=== PATIENT | male | born 1945 | race Caucasian/White ===

== ENCOUNTER 2018-03-13 05:23 | Inpatient (IN) ==
[2018-03-13] MEDS ORDERED: 0.9 % SODIUM CHLORIDE 1,000 ML IV ONE ×2 (05:29→06:23)
[2018-03-13] MEDS ORDERED: ACETAMINOPHEN 325 MG TABLET PO ONE (05:38)
[2018-03-13 06:39] LABS: Basophils # (Auto) 0 K/mcL (0.0-0.3); Basophils % (Auto) 0 % (0.0-2.0); Eosinophils # (Auto) 0 K/mcL (0.0-0.7); Eosinophils % (Auto) 0.1 % (0.0-7.0); Granulocytes % (Auto) 95.6 % (38.0-78.0); Lymphocytes # (Auto) 0.3 K/mcL (1.5-4.8); Lymphocytes % (Auto) 3.9 % (15.5-49.0); Mean Corpuscular HGB Conc 33.5 g/dL (31.0-36.0); Mean Corpuscular Hemoglobin 31.2 pg (26.0-34.0); Monocytes # (Auto) 0 K/mcL (0.1-0.9); Monocytes % (Auto) 0.4 % (1.0-12.0); Platelet Count 212 K/mcL (140-440); RBC 4.78 M/mcL (4.50-5.90); Red Cell Distribution Width 12.7 % (11.5-14.5)
[2018-03-13] MEDS ORDERED: PHENobarb/HYOSCY/ATROPINE/SCOP 1 DOSE BOTTLE PO ONE (06:41)
[2018-03-13 06:58] LABS: ALT/SGPT 20 U/l (0-40); Albumin 4.1 gm/dL (3.2-5.2); Albumin/Globulin Ratio 1.7 (1.0-2.3); Alkaline Phosphatase 101 U/L (39-117); Blood Urea Nitrogen 16 mg/dl (8-23); C-Reactive Protein 0.4 mg/dl (0.0-0.8)
[2018-03-13 07:11] LABS: Appearance,Urine CLOUDY; Bacteria,Urine 0 /hpf (0); Bilirubin,Urine NEG (NEG); Color,Urine RED; Glucose,Urine (UA) NEGATIVE (NEG); Leukocyte Esterase,Urine NEG /uL (NEG); Mucus,Urine MANY /hpf (0); Protein,Urine 100 mg/dL (NEG); Specific Gravity,Urine 1.013 (1.000-1.035); Urine Blood >=1.0 mg/dL (<0.03); Urine RBC > 182 /hpf (0-1); Urine Squamous Epithelial Cell 0 /hpf (0-4); Urine WBC > 182 /hpf (0-4); Urobilinogen,Urine NEG (NEG)
[2018-03-13] MEDS ORDERED: LACTATED RINGERS 500 ML IV ONE (08:01)
[2018-03-13] MEDS ORDERED: cefTRIAXone 2 GM in DEXTROSE 5% IN WATER 50 ML IV ONE (08:01)
--- NOTE | 2018-03-13 08:05 | Emergency Department Note ---
Fever HPI - General Chief Complaint: Fever Stated Complaint: fever Time Seen by Provider: 03/13/18 07:54 Source: patient Mode of arrival: ambulatory Limitations: no limitations - History of Present Illness HPI Narrative: This pleasant 72-year-old male comes emergency room with his , Rani, accompanying him describing onset around 230 or 3 this morning shaking , nausea and fever. Temperature was as high as 103.5. He took a dose of Cipro last evening around 10 PM. He had had a prostate biopsy performed yesterday at the [facility] in [place]. He had some blood in his urine but no clotting. He was given Zofran by EMS. His regimen was to be on the Cipro 500 and then nitrofurantoin twice a day. He denied sweatiness. REVIEW OF SYSTEMS: Denies runny nose and sore throat. Denies chest pain. Denies cough. Denies abdominal pain. Did vomit once. He has some chronic low-grade diarrhea or back and forth between constipation. He takes lactobacillus which helps some. He denies hematochezia. Has had heartburn chronically and frequently takes Tums in the morning for this. Has had some redness in his urine since the biopsy. No headaches. Feels lightheaded and dizzy when he stands up. Has not passed out or lost consciousness. [place] fairly weak when he was shivering. Has some significant anxiety. No depression. - Related Data Home Medications Medication Instructions Recorded Confirmed sildenafil 100 mg tablet See Dose Instructions PO ONCE PRN 03/09/15 03/13/18 aspirin 325 mg tablet 325 mg PO QDAY 03/30/15 03/13/18 Allergies Allergy/AdvReac Type Severity Reaction Status Date / Time mirtazapine [From Remeron] AdvReac Unknown Unknown Verified 06/04/17 08:23 codeine sulfate AdvReac Intermediate Drowsy Uncoded 06/04/17 08:23 Fever PMH - Past Medical History Medical history: Reports: GERD, hyperlipidemia. Denies: asthma, CVA, DM, hypertension, seizures, thyroid disease Surgical history ED: Reports: other (prostate biopsy twice, last 03/12/18.) Psychiatric history: Reports: anxiety. Denies: depression - Social History smoking status: Former smoker (Quit 2009) Physical Exam Limitations: no limitations General appearance: alert, malaise (moderate) Head: atraumatic, normocephalic Eye: Present: EOMI ENT: normal oropharynx, mucous membranes moist Neck: Present: trachea midline. Absent: lymphadenopathy, thyromegaly Chest: Present: symmetric chest wall rise Respiratory: Present: normal lung sounds bilaterally. Absent: respiratory distress, wheezes, stridor, accessory muscle use, prolonged expiratory phase Cardiovascular: Present: regular rate, normal rhythm. Absent: systolic murmur, diastolic murmur Abdominal: Present: soft. Absent: distention, tenderness, guarding, rebound, rigidity, organomegaly, mass Extremities: Absent: pedal edema, pretibial edema, calf tenderness Back: Absent: CVA tenderness (R), CVA tenderness (L), spinous process tenderness Neurological: Present: alert, oriented X3 Psychiatric: Present: flat affect, serious (mildly) Skin: Present: warm, dry Course Course Narrative: 5:38 AM - with post biopsy and significant fever and chills will do general workup including CBC, CMP CRP and lactic acid as well as blood cultures and urinalysis. 8:00 AM - after liter of fluid actually is feeling quite a bit better. Temperature came down from oral acetaminophen. White count is 7.1 but 96% granulocytes. Lactic acid is 3.2. CMP is normal. UA demonstrates greater than 182 both white blood cells and red blood cells. CRP is normal at 0.4. Patient reports his blood pressure to normally be around 130/70. Here in the ER it has been 97-115/70. Pulse has been 95-110. 8:08 AM - with above we will give an additional 500 cc of normal saline and ceftriaxone 2 g. 8:24 AM - saturations commonly 90-93%. Patient denies any knowledge of diagnosis of COPD, emphysema, chronic bronchitis, or asthma. He reports he has several nodules that have been followed over 5 years that have not caused additional alarm. [facility] and has [facility] scans. We will do 2 view chest x-ray. 8:55 AM - I discussed this patient's situation, labs, exam etc. with Dr. Stanislaw Redmond, hospitalist, who kindly agrees to accept him as inpatient for additional treatment. Vital Signs Temperature 102.0 F H 03/13/18 05:24 Pulse Rate 123 H 03/13/18 05:24 Respiratory Rate 18 03/13/18 05:24 Blood Pressure 129/78 03/13/18 05:24 Pulse Oximetry (%) 99 03/13/18 05:24 Temperature 98.4 F 03/13/18 08:59 Pulse Rate 101 H 03/13/18 09:00 Respiratory Rate 10 L 03/13/18 09:00 Blood Pressure 107/65 03/13/18 08:59 Pulse Oximetry (%) 92 03/13/18 09:00 Fever - Lab Data Lab results reviewed: Yes I reviewed the patient's lab results. Result diagrams: 03/13/18 05:40 03/13/18 05:40 Lab Results 03/13/18 03/13/18 03/13/18 Range/Units 05:40 05:40 05:40 WBC 7.1 (4.5-11.0) K/mcL RBC 4.78 (4.50-5.90) M/mcL Hgb 14.9 (13.5-16.5) g/dL Hct 44.5 (41.0-55.0) % MCV 93.0 (80.0-100.0) fL MCH 31.2 (26.0-34.0) pg MCHC 33.5 (31.0-36.0) g/dL RDW 12.7 (11.5-14.5) % Plt Count 212 (140-440) K/mcL MPV 9.8 (7.4-10.4) fL Gran % 95.6 H (38.0-78.0) % Lymph % (Auto) 3.9 L (15.5-49.0) % [place] % (Auto) 0.4 L (1.0-12.0) % Eos % (Auto) 0.1 (0.0-7.0) % Baso % (Auto) 0 (0.0-2.0) % Gran # 6.8 (1.8-8.0) K/mcL Lymph # (Auto) 0.3 L (1.5-4.8) K/mcL [place] # (Auto) 0 L (0.1-0.9) K/mcL Eos # (Auto) 0 (0.0-0.7) K/mcL Baso # (Auto) 0 (0.0-0.3) K/mcL VBG Lactic Acid 3.2 H (0.5-2.0) mmol/L Sodium 141 (133-145) mmol/L Potassium 3.8 (3.3-5.1) mmol/L Chloride 102 (96-108) mmol/L Carbon Dioxide 24 (22-30) mmol/L Anion Gap 15.0 (8-16) BUN 16 (8-23) mg/dl Creatinine 1.1 (0.7-1.2) mg/dl GFR Calculation 68 Glucose 101 (70-105) mg/dL Calcium 9.7 (8.6-10.4) mg/dl Total Bilirubin 0.9 (0.0-1.0) mg/dL AST 21 (0-37) U/l ALT 20 (0-40) U/l Alkaline Phosphatase 101 (39-117) U/L C-Reactive Protein 0.4 (0.0-0.8) mg/dl Total Protein 6.5 (5.9-8.4) gm/dL Albumin 4.1 (3.2-5.2) gm/dL Globulin 2.4 (2.2-3.7) gm/dL Albumin/Globulin Ratio 1.7 (1.0-2.3) Urine Color Urine Appearance Urine pH (5.0-9.0) Ur Specific [place] (1.000-1.035) Urine Protein (NEG) mg/dL Urine Glucose (UA) (NEG) mg/dL Urine Ketones (NEG) mg/dL Urine Occult Blood (<0.03) mg/dL Urine Nitrate (NEG) Urine Bilirubin (NEG) mg/dL Urine Urobilinogen (NEG) mg/dL Ur Leukocyte Esterase (NEG) /uL Urine RBC (0-1) /hpf Urine WBC (0-4) /hpf Ur Squamous Epith Cells (0-4) /hpf Urine Bacteria (0) /hpf Urine Mucus (0) /hpf Ur Culture Indicated? 03/13/18 Range/Units 06:14 WBC (4.5-11.0) K/mcL RBC (4.50-5.90) M/mcL Hgb (13.5-16.5) g/dL Hct (41.0-55.0) % MCV (80.0-100.0) fL MCH (26.0-34.0) pg MCHC (31.0-36.0) g/dL RDW (11.5-14.5) % Plt Count (140-440) K/mcL MPV (7.4-10.4) fL Gran % (38.0-78.0) % Lymph % (Auto) (15.5-49.0) % [place] % (Auto) (1.0-12.0) % Eos % (Auto) (0.0-7.0) % Baso % (Auto) (0.0-2.0) % Gran # (1.8-8.0) K/mcL Lymph # (Auto) (1.5-4.8) K/mcL [place] # (Auto) (0.1-0.9) K/mcL Eos # (Auto) (0.0-0.7) K/mcL Baso # (Auto) (0.0-0.3) K/mcL VBG Lactic Acid (0.5-2.0) mmol/L Sodium (133-145) mmol/L Potassium (3.3-5.1) mmol/L Chloride (96-108) mmol/L Carbon Dioxide (22-30) mmol/L Anion Gap (8-16) BUN (8-23) mg/dl Creatinine (0.7-1.2) mg/dl GFR Calculation Glucose (70-105) mg/dL Calcium (8.6-10.4) mg/dl Total Bilirubin (0.0-1.0) mg/dL AST (0-37) U/l ALT (0-40) U/l Alkaline Phosphatase (39-117) U/L C-Reactive Protein (0.0-0.8) mg/dl Total Protein (5.9-8.4) gm/dL Albumin (3.2-5.2) gm/dL Globulin (2.2-3.7) gm/dL Albumin/Globulin Ratio (1.0-2.3) Urine Color Red Urine Appearance Cloudy Urine pH 6.0 (5.0-9.0) Ur Specific [place] 1.013 (1.000-1.035) Urine Protein 100 A (NEG) mg/dL Urine Glucose (UA) Negative (NEG) mg/dL Urine Ketones Neg (NEG) mg/dL Urine Occult Blood >=1.0 A (<0.03) mg/dL Urine Nitrate Neg (NEG) Urine Bilirubin Neg (NEG) mg/dL Urine Urobilinogen Neg (NEG) mg/dL Ur Leukocyte Esterase Neg (NEG) /uL Urine RBC > 182 H (0-1) /hpf Urine WBC > 182 H (0-4) /hpf Ur Squamous Epith Cells 0 (0-4) /hpf Urine Bacteria 0 (0) /hpf Urine Mucus Many A (0) /hpf Ur Culture Indicated? Yes - Radiology Data Radiology results reviewed: Yes I reviewed the patient's radiology results. Disposition Pt seen by [facility] only: No Clinical Impression: History of prostate biopsy, Borderline low oxygen saturation level, Nonspecific ST-T wave electrocardiographic changes Sepsis Qualifiers: Sepsis type: sepsis due to unspecified organism Qualified Code(s): A41.9 - Sepsis, unspecified organism UTI (urinary tract infection) Qualifiers: Urinary tract infection type: site unspecified Hematuria presence: with hematuria Qualified Code(s): N39.0 - Urinary tract infection, site not specified ; R31.9 - Hematuria, unspecified COPD (chronic obstructive pulmonary disease) Qualifiers: COPD type: unspecified COPD Qualified Code(s): J44.9 - Chronic obstructive pulmonary disease, unspecified Summary: See "COURSE" above. Of note are the nonspecific ST-T wave changes on his EKG but this could be due to his sepsis. COPD has a diagnosis is a new diagnosis for this patient based on the chest x- ray findings. No specific treatment was initiated as he was and remained asymptomatic from a pulmonary/respiratory standpoint. Disposition: Xfer As Inpt ([facility]) Condition: Fair Referrals: Cinthia Anglin [Primary Care Provider] -
[2018-03-13] MEDS ORDERED: 0.9 % SODIUM CHLORIDE 500 ML IV ONE (08:13)
--- NOTE | 2018-03-13 08:47 | XRay Report ---
CLINICAL INFORMATION: Low sat's, fever COMPARISON: 05/30/2005 FINDINGS: Heart size, mediastinum and pulmonary vessels are normal. Lungs volumes are elevated suggesting chronic bronchitis or asthma. Minimal scattered scarring or atelectasis seen in both mid and lower lungs. No waqar infiltrates or effusions. IMPRESSION: Findings suggestive of chronic bronchitis or asthma. Interpreted and Authenticated by: Nikita Marrufo 03/13/18
--- NOTE | 2018-03-13 10:25 | Internal Med History&Physical ---
Medical - H&P: HPI Patient information: Note initiated : 03/13/18 at 10:21 am Service Date, if different from initiated Date: [] Patient: Gisela Finn 72 y/o M admitted on for Fever. Chief Complaint: [] History of present illness: Mr. Finn is a 72 year old M Who had a prostate biopsy up at the CT yesterday. Early this morning around 2: 58 AM patient started developing severe shakiness, did not particular feel like he had a fever. per he also seemed confused she called 911 brought him to the ED. In the ED he was worked up and found to have sepsis syndrome, likely secondary to recent biopsy. Patient was febrile 102 he was tachycardic in the low 100s. His blood pressure dropped into the low 90s. Pro-calcitonin elevated, lactate elevated at 3.2. Discussing with the patient he does feel much better after the IV fluid mentation is improved per his . Still tachycardic, blood pressure is improved but still low 100s. Does have some hematuria status post procedure which is expected. Review of Systems: Positive for chills, headache, confusion. Denies /nausea/vomiting/chest or abdominal pain/cough/dyspnea/diarrhea. Remaining 10 point review of systems reviewed and negative Medical - H&P: PMH Medical history: Past medical history: PTSD Surgical history: Tonsillectomy Biopsies Family history: Mother lung cancer Father had Social history: Quit smoking 2009 Drinks alcohol 4-5 times per month Lives at home with Medical - H&P: Meds Home Medications Medication Instructions Recorded Confirmed Type sildenafil 100 mg tablet See Dose Instructions PO ONCE PRN 03/09/15 03/13/18 History aspirin 325 mg tablet 325 mg PO QDAY 03/30/15 03/13/18 History Allergies Allergy/AdvReac Type Severity Reaction Status Date / Time mirtazapine [From Remeron] AdvReac Unknown Unknown Verified 06/04/17 08:23 codeine sulfate AdvReac Intermediate Drowsy Uncoded 06/04/17 08:23 Medical - H&P: Exam - Constitutional Vitals: Temp Pulse Resp BP Pulse Ox 98.4 F 98 H 10 L 113/70 92 03/13/18 08:59 03/13/18 10:02 03/13/18 10:02 03/13/18 10:01 03/13/18 10:02 Exam: General: Alert, Awake, No acute Distress Eyes/N/T: EOMI, pupils equal round react to light, dry mucous membranes Head/Neck: neck supple, normocephalic atraumatic CV: Tachycardia but regular, No murmurs, normal s1/s2 Pulm: Clear b/l, no wheezing/rhonchi/rales Abd: soft, nontender, +BS x4 Ext: no clubbing/cyanosis/edema Neuro: Alert, no focal deficits, moves all extremities Skin: warm/dry Medical - H&P: Reslt - Labs CBC & Chem 7: 03/13/18 05:40 03/13/18 05:40 Labs: Short CBC 03/13/18 Range/Units 05:40 WBC 7.1 (4.5-11.0) K/mcL Hgb 14.9 (13.5-16.5) g/dL Hct 44.5 (41.0-55.0) % Plt Count 212 (140-440) K/mcL BMP 03/13/18 05:40 Sodium 141 Potassium 3.8 Chloride 102 Carbon Dioxide 24 BUN 16 Creatinine 1.1 Glucose 101 Calcium 9.7 Liver Function 03/13/18 Range/Units 05:40 Total Bilirubin 0.9 (0.0-1.0) mg/dL AST 21 (0-37) U/l ALT 20 (0-40) U/l Alkaline Phosphatase 101 (39-117) U/L Albumin 4.1 (3.2-5.2) gm/dL Urine 03/13/18 Range/Units 06:14 Urine Color Red Urine Appearance Cloudy Urine pH 6.0 (5.0-9.0) Ur Specific [place] 1.013 (1.000-1.035) Urine Protein 100 A (NEG) mg/dL Urine Glucose (UA) Negative (NEG) mg/dL - Impressions Chest x-ray no acute pathology EKG with sinus tach, nonspecific changes Urinalysis with WBCs RBCs and some protein, no leukocyte esterase or nitrites Medical - H&P: A/P - Narrative A/P Narrative: A: *Sepsis: s/p prostate biopsy yesterday (CT in [place]) *Hematuria: Status post prostate biopsy, expected *PTSD: *Suspected COPD given smoking history and chest x-ray findings: asymptomatic P: -IVF's -f/u lactate -Zosyn, pending BC/UC - -ppx:SCD's
[2018-03-13] MEDS ORDERED: 0.9 % SODIUM CHLORIDE 750 ML IV ONE (11:43)
[2018-03-13] MEDS ORDERED: HYDROcodone/APAP 5/325MG TABLET PO PRN (11:43)
[2018-03-13] MEDS ORDERED: ACETAMINOPHEN 325 MG TABLET PO PRN (11:43)
[2018-03-13] MEDS ORDERED: ONDANSETRON 4 MG/2 ML VIAL IV PRN (11:43)
[2018-03-13] MEDS: 0.9 % SODIUM CHLORIDE 1,000 ML IV SCH ×3 (11:45→17:00)
[2018-03-13] MEDS: PIPERACILLIN SODIUM/TAZOBACTAM 3.375 GM in DEXTROSE 5% IN WATER 50 ML IV SCH ×2 (11:45→17:56)
[2018-03-13 11:58] LABS: Band Neutrophils % 9 % (0-10); Lymphocytes % 9 % (15-49); Monocytes % (Manual) 1 % (1-12); Platelet Estimate NORMAL (NORMAL); RBC Morphology NORMAL (NORMAL); Segmented Neutrophils % 81 % (38-78)
[2018-03-13] MEDS ORDERED: ACETAMINOPHEN 1,000 MG/100 ML BOTTLE IV ONE ×2 (14:58→15:00)
[2018-03-13] MEDS: 0.9 % SODIUM CHLORIDE 10 ML SYRINGE IV SCH ×2 (16:28→20:06)
[2018-03-13 17:09] LABS: ALT/SGPT 33 U/l (0-40); Albumin 3.1 gm/dL (3.2-5.2); Albumin/Globulin Ratio 1.4 (1.0-2.3); Alkaline Phosphatase 89 U/L (39-117); Bilirubin,Direct 0.8 mg/dL (0.0-0.3); Blood Urea Nitrogen 16 mg/dl (8-23); Gamma Glutamyl Transpeptidase 78 U/L (8-61); Uric Acid 6.4 mg/dL (2.5-8.0)
[2018-03-13] MEDS ORDERED: LACTATED RINGERS 1,000 ML IV ONE ×2 (17:12→22:17)
[2018-03-13 17:33] LABS: Basophils # (Auto) 0 K/mcL (0.0-0.3); Basophils % (Auto) 0 % (0.0-2.0); Eosinophils # (Auto) 0 K/mcL (0.0-0.7); Eosinophils % (Auto) 0.1 % (0.0-7.0); Granulocytes % (Auto) 92.5 % (38.0-78.0); Lymphocytes # (Auto) 0.1 K/mcL (1.5-4.8); Lymphocytes % (Auto) 6.9 % (15.5-49.0); Mean Cell Volume 92.3 fL (80.0-100.0); Mean Corpuscular HGB Conc 34.7 g/dL (31.0-36.0); Monocytes # (Auto) 0 K/mcL (0.1-0.9); Monocytes % (Auto) 0.5 % (1.0-12.0); Platelet Count 131 K/mcL (140-440); RBC 4.04 M/mcL (4.50-5.90)
[2018-03-13] MEDS ORDERED: MAGNESIUM SULFATE IN WATER 4 GM/100 ML BAG IV ONE (18:00)
[2018-03-13] MEDS ORDERED: POTASSIUM PHOSPHATE 66 MEQ/15 ML VIAL IV ONE (18:36)
[2018-03-13] MEDS ORDERED: CALCIUM CARBONATE 500 MG TAB.CHEW CHEWED PRN (18:38)
[2018-03-13] MEDS ORDERED: PANTOPRAZOLE 40 MG VIAL IV ONE ×2 (18:38→19:28)
[2018-03-13] MEDS ORDERED: POTASSIUM PHOSPHATE 40 MEQ in DEXTROSE 5% IN WATER 500 ML IV ONE (19:00)
[2018-03-13] MEDS ORDERED: CALCIUM CARBONATE 500 MG TAB.CHEW ONE (20:10)
--- NOTE | 2018-03-13 20:30 | Critical Care Progress Note ---
Critical Care Note - Narrative Summary: Progress Note initiated : 03/13/18 at 8:10 pm Service Date, if different from initiated Date: [] Patient: Gisela Finn 72 y/o M admitted on 03/13/18 for Fever. Chief Complaint: f/u sepsis Int Hx: The patient developed fever to 103.4 degrees, tachycardia, rigors and delirium this afternoon. SBP remained >100 and MAP >65, however, had evidence of new onset septic shock with lactate 4.9. Also with acute leukopenia and mild thrombocytopenia, abnormal liver enzymes. He received further fluid boluses and acetaminophen along with active cooling. Moved to a more closely monitored bed. Electrolytes repleted. Obj: Last Vital Signs Temp 103.0 F H 03/13/18 15:45 Pulse 106 H 03/13/18 17:10 Resp 25 H 03/13/18 17:10 BP 114/52 03/13/18 17:00 Pulse Ox 99 03/13/18 17:10 Exam: Gen: Uncomfortable, shaking Chest: Unlabored, clear CV: Tachy, regular Abd: Soft, no tenderness Neuro: Mumbling responses Labs: below A/P: Severe sepsis with septic shock (lactate >4), likely due to prostate biopsy yesterday. Suspect liver enzyme abnormalities are secondary to sepsis and not primary source. -Continue Zosyn, follow up cultures Leukopenia and mild thrombocytopenia, likely secondary to robust sepsis response. ANC greater than 1000, will not place on neutropenic precautions at this time. -Follow Elevated total bilirubin 1.7, mildly abnormal transaminases. Suspect this is manifestation of sepsis. Follow Sepsis Reperfusion Exam I attest that I have performed a reperfusion assessment following crystalloid bolus. Laboratory Results - last 24 hr 03/13/18 03/13/18 03/13/18 05:40 05:40 05:40 WBC 7.1 RBC 4.78 Hgb 14.9 Hct 44.5 MCV 93.0 MCH 31.2 MCHC 33.5 RDW 12.7 Plt Count 212 MPV 9.8 Gran % 95.6 H Lymph % (Auto) 3.9 L [place] % (Auto) 0.4 L Eos % (Auto) 0.1 Baso % (Auto) 0 Gran # 6.8 Lymph # (Auto) 0.3 L [place] # (Auto) 0 L Eos # (Auto) 0 Baso # (Auto) 0 Total Counted Seg Neutrophils % Band Neutrophils % Lymphocytes % Monocytes % (Manual) Platelet Estimate RBC Morphology VBG Lactic Acid 3.2 H Sodium 141 Potassium 3.8 Chloride 102 Carbon Dioxide 24 Anion Gap 15.0 BUN 16 Creatinine 1.1 GFR Calculation 68 Glucose 101 Uric Acid Calcium 9.7 Phosphorus Magnesium Total Bilirubin 0.9 Direct Bilirubin GGT AST 21 ALT 20 Alkaline Phosphatase 101 Lactate Dehydrogenase C-Reactive Protein 0.4 Total Protein 6.5 Albumin 4.1 Globulin 2.4 Albumin/Globulin Ratio 1.7 Triglycerides Procalcitonin Urine Color Urine Appearance Urine pH Ur Specific [place] Urine Protein Urine Glucose (UA) Urine Ketones Urine Occult Blood Urine Nitrate Urine Bilirubin Urine Urobilinogen Ur Leukocyte Esterase Urine RBC Urine WBC Ur Squamous Epith Cells Urine Bacteria Urine Mucus Ur Culture Indicated? 03/13/18 03/13/18 03/13/18 05:40 06:14 08:20 WBC RBC Hgb Hct MCV MCH MCHC RDW Plt Count MPV Gran % Lymph % (Auto) [place] % (Auto) Eos % (Auto) Baso % (Auto) Gran # Lymph # (Auto) [place] # (Auto) Eos # (Auto) Baso # (Auto) Total Counted 100 Seg Neutrophils % 81 H Band Neutrophils % 9 Lymphocytes % 9 L Monocytes % (Manual) 1 Platelet Estimate Normal RBC Morphology Normal VBG Lactic Acid Sodium Potassium Chloride Carbon Dioxide Anion Gap BUN Creatinine GFR Calculation Glucose Uric Acid Calcium Phosphorus Magnesium Total Bilirubin Direct Bilirubin GGT AST ALT Alkaline Phosphatase Lactate Dehydrogenase C-Reactive Protein Total Protein Albumin Globulin Albumin/Globulin Ratio Triglycerides Procalcitonin 16.91 Urine Color Red Urine Appearance Cloudy Urine pH 6.0 Ur Specific [place] 1.013 Urine Protein 100 A Urine Glucose (UA) Negative Urine Ketones Neg Urine Occult Blood >=1.0 A Urine Nitrate Neg Urine Bilirubin Neg Urine Urobilinogen Neg Ur Leukocyte Esterase Neg Urine RBC > 182 H Urine WBC > 182 H Ur Squamous Epith Cells 0 Urine Bacteria 0 Urine Mucus Many A Ur Culture Indicated? Yes 03/13/18 03/13/18 03/13/18 11:56 16:12 16:12 WBC 1.4 L RBC 4.04 L Hgb 12.9 L Hct 37.3 L MCV 92.3 MCH 32.0 MCHC 34.7 RDW 13.0 Plt Count 131 L MPV 9.5 Gran % 92.5 H Lymph % (Auto) 6.9 L [place] % (Auto) 0.5 L Eos % (Auto) 0.1 Baso % (Auto) 0 Gran # 1.3 L Lymph # (Auto) 0.1 L [place] # (Auto) 0 L Eos # (Auto) 0 Baso # (Auto) 0 Total Counted Seg Neutrophils % Band Neutrophils % Lymphocytes % Monocytes % (Manual) Platelet Estimate RBC Morphology VBG Lactic Acid 1.8 Sodium 139 Potassium 3.5 Chloride 103 Carbon Dioxide 20 L Anion Gap 16.0 BUN 16 Creatinine 1.4 H GFR Calculation 51 Glucose 87 Uric Acid 6.4 Calcium 8.5 L Phosphorus 1.2 L Magnesium 1.3 L Total Bilirubin 1.7 H Direct Bilirubin 0.8 H GGT 78 H AST 63 H ALT 33 Alkaline Phosphatase 89 Lactate Dehydrogenase 202 C-Reactive Protein Total Protein 5.3 L Albumin 3.1 L Globulin 2.2 Albumin/Globulin Ratio 1.4 Triglycerides 91 Procalcitonin Urine Color Urine Appearance Urine pH Ur Specific [place] Urine Protein Urine Glucose (UA) Urine Ketones Urine Occult Blood Urine Nitrate Urine Bilirubin Urine Urobilinogen Ur Leukocyte Esterase Urine RBC Urine WBC Ur Squamous Epith Cells Urine Bacteria Urine Mucus Ur Culture Indicated? 03/13/18 16:12 WBC RBC Hgb Hct MCV MCH MCHC RDW Plt Count MPV Gran % Lymph % (Auto) [place] % (Auto) Eos % (Auto) Baso % (Auto) Gran # Lymph # (Auto) [place] # (Auto) Eos # (Auto) Baso # (Auto) Total Counted Seg Neutrophils % Band Neutrophils % Lymphocytes % Monocytes % (Manual) Platelet Estimate RBC Morphology VBG Lactic Acid 4.9 H* Sodium Potassium Chloride Carbon Dioxide Anion Gap BUN Creatinine GFR Calculation Glucose Uric Acid Calcium Phosphorus Magnesium Total Bilirubin Direct Bilirubin GGT AST ALT Alkaline Phosphatase Lactate Dehydrogenase C-Reactive Protein Total Protein Albumin Globulin Albumin/Globulin Ratio Triglycerides Procalcitonin Urine Color Urine Appearance Urine pH Ur Specific [place] Urine Protein Urine Glucose (UA) Urine Ketones Urine Occult Blood Urine Nitrate Urine Bilirubin Urine Urobilinogen Ur Leukocyte Esterase Urine RBC Urine WBC Ur Squamous Epith Cells Urine Bacteria Urine Mucus Ur Culture Indicated? Was code activated?: No - CC Time CC start date: 03/13/18 CC start time: 15:00 CC end date: 03/13/18 CC end time: 20:00 CC total mins: 300 (discontinuous) Critical care time: 195 mins or longer
[2018-03-13] MEDS: ACETAMINOPHEN 1,000 MG/100 ML BOTTLE IV PRN (21:25)
[2018-03-14] MEDS: PIPERACILLIN SODIUM/TAZOBACTAM 3.375 GM in DEXTROSE 5% IN WATER 50 ML IV SCH ×5 (00:02→23:48)
[2018-03-14] MEDS: 0.9 % SODIUM CHLORIDE 1,000 ML IV SCH ×4 (00:35→22:14)
[2018-03-14] MEDS: ACETAMINOPHEN 1,000 MG/100 ML BOTTLE IV PRN (03:59)
[2018-03-14] MEDS: 0.9 % SODIUM CHLORIDE 10 ML SYRINGE IV SCH ×5 (05:22→21:19)
[2018-03-14] MEDS ORDERED: IPRATROPIUM/ALBUTEROL 3 ML AMPUL.NEB NEB PRN ×2 (05:45→09:12)
[2018-03-14] MEDS ORDERED: IPRATROPIUM/ALBUTEROL 3 ML AMPUL.NEB NEB ONE (05:55)
[2018-03-14 05:58] LABS: Basophils # (Auto) 0 K/mcL (0.0-0.3); Basophils % (Auto) 0 % (0.0-2.0); Eosinophils # (Auto) 0 K/mcL (0.0-0.7); Eosinophils % (Auto) 0 % (0.0-7.0); Granulocytes % (Auto) 95.4 % (38.0-78.0); Lymphocytes # (Auto) 0.3 K/mcL (1.5-4.8); Lymphocytes % (Auto) 1.9 % (15.5-49.0); Mean Cell Volume 93.4 fL (80.0-100.0); Mean Corpuscular HGB Conc 34.5 g/dL (31.0-36.0); Mean Corpuscular Hemoglobin 32.2 pg (26.0-34.0); Monocytes # (Auto) 0.4 K/mcL (0.1-0.9); Monocytes % (Auto) 2.7 % (1.0-12.0); Platelet Count 140 K/mcL (140-440); RBC 3.95 M/mcL (4.50-5.90); Red Cell Distribution Width 12.7 % (11.5-14.5)
[2018-03-14 06:55] LABS: ALT/SGPT 92 U/l (0-40); Albumin 2.9 gm/dL (3.2-5.2); Albumin/Globulin Ratio 1.5 (1.0-2.3); Alkaline Phosphatase 92 U/L (39-117); Bilirubin,Direct 1.7 mg/dL (0.0-0.3); Blood Urea Nitrogen 20 mg/dl (8-23); Gamma Glutamyl Transpeptidase 130 U/L (8-61); Uric Acid 5.3 mg/dL (2.5-8.0)
[2018-03-14] MEDS ORDERED: PANTOPRAZOLE 40 MG VIAL IV SCH (07:30)
[2018-03-14] MEDS ORDERED: CALCIUM CARBONATE 500 MG TAB.CHEW CHEWED PRN (09:12)
[2018-03-14] MEDS ORDERED: HYDROcodone/APAP 5/325MG TABLET PO PRN (09:12)
[2018-03-14] MEDS ORDERED: ACETAMINOPHEN 1,000 MG/100 ML BOTTLE IV PRN (09:12)
[2018-03-14] MEDS ORDERED: ONDANSETRON 4 MG/2 ML VIAL IV PRN (09:12)
--- NOTE | 2018-03-14 12:35 | Internal Med Progress Note ---
Medical - PN: Subj Patient information: Note initiated : 03/14/18 at 12:26 pm Service Date, if different from initiated Date: [] Patient: Gisela Finn 72 y/o M admitted on 03/13/18 for Fever. Chief Complaint: f/u sepsis Interval history: 03/13 Presented with fever, elevated lactate, consistent with sepsis from prostate biopsy the day before. Compensated with fever, delirium, tachycardia, hypotension and worsening lactic acidosis consistent with septic shock. Resuscitated with fluid boluses, did not require pressors. 03/14 Feeling better this morning. Blood pressure still soft, though maintaining MAP greater than 65. No abdominal pain. No further rigors. No nausea or vomiting. Mild dyspnea, improved with incentive spirometry. - Constitutional Vitals: Vital Signs Temp Pulse Resp BP Pulse Ox 98.6 F 80 15 81/63 98 03/14/18 08:00 03/14/18 09:23 03/14/18 09:23 03/14/18 09:23 03/14/18 09:23 Period Temp Pulse Resp BP Sys/[place] Pulse Ox Last 24 Hr 98.4 F-103.4 F 55-128 - 59-162/29-74 91-100 Intake and Output 03/13/18 03/14/18 03/14/18 21:59 05:59 13:59 Intake Total 2900 / 2900 2802.0909 / 2802.0909 180 / 180 Output Total 400 / 400 545 / 545 555 / 555 Balance 2500 / 2500 2257.0909 / 2257.0909 -375 / -375 Weight 209 lb 213 lb 5 oz Intake & Output: Intake & Output 03/13/18 03/14/18 03/14/18 21:59 05:59 13:59 Intake Total 2900 / 2900 2802.0909 / 2802.0909 180 / 180 Output Total 400 / 400 545 / 545 555 / 555 Balance 2500 / 2500 2257.0909 / 2257.0909 -375 / -375 Weight 209 lb 213 lb 5 oz Intake: IV 2122 / 2122 2802.0909 / 2802.0909 Sodium Chloride 0.9% 1,000 ml @ 823 / 823 993 / 993 125 mls/hr IV .Q8H [facility] Rx#: [id number] Lactated Ringers 1,000 ml @ 1000 / 1000 Wide Open IV BOLUS ONE Rx#: [id number] MAGNESIUM SULF 4GM BAG 4 gm In 100 / 100 100 ml @ 50 mls/hr IV ONCE ONE Rx#:[id number] Zosyn 3.375 gm In Dextrose 5% 100 / 100 100 / 100 in Water 50 ml @ 100 mls/hr IV Q6H [facility] Rx#:[id number] Oral 180 / 180 IV - Manual Only 777 / 777 Output: Urine Catheter Amount 400 / 400 545 / 545 555 / 555 Other: Meal Breakfast Percent of Meal Consumed 75% Feeding Ability Independent Urine Appearance Clear Uretheral (Baez) Clear Urine Color Light [place] Light [place] Uretheral (Baez) Dark [place] Red Brown Stool Size Small Stool Color Brown Stool Consistency Dry and Hard Raya # Bowel Movements 1 Exam: General: In bed, appears comfortable Chest: Diminished at bases with few fine rales, no respiratory distress Cardiovascular: Regular, no edema, no murmur Abdomen: Soft, no right upper quadrant or other tenderness, no guarding or rebound Neuro: Alert, oriented 3, nonfocal Medical - PN: Obj Da - Labs CBC & Chem 7: 03/14/18 04:05 03/14/18 04:05 Labs: Abnormal Lab Results 03/14/18 03/14/18 03/14/18 04:05 04:05 04:05 WBC 13.8 H RBC 3.95 L Hgb 12.7 L Hct 36.9 L Plt Count MPV 10.7 H Gran % 95.4 H Lymph % (Auto) 1.9 L [place] % (Auto) Gran # 13.1 H Lymph # (Auto) 0.3 L [place] # (Auto) Seg Neutrophils % Lymphocytes % VBG Lactic Acid 2.4 H Carbon Dioxide 20 L Creatinine 1.3 H Calcium 8.2 L Phosphorus Magnesium Total Bilirubin 2.6 H Direct Bilirubin 1.7 H GGT 130 H AST 150 H ALT 92 H Lactate Dehydrogenase 329 H Total Protein 4.9 L Albumin 2.9 L Globulin 2.0 L Urine Protein Urine Occult Blood Urine RBC Urine WBC Urine Mucus 03/13/18 03/13/18 03/13/18 16:12 16:12 16:12 WBC 1.4 L RBC 4.04 L Hgb 12.9 L Hct 37.3 L Plt Count 131 L MPV Gran % 92.5 H Lymph % (Auto) 6.9 L [place] % (Auto) 0.5 L Gran # 1.3 L Lymph # (Auto) 0.1 L [place] # (Auto) 0 L Seg Neutrophils % Lymphocytes % VBG Lactic Acid 4.9 H* Carbon Dioxide 20 L Creatinine 1.4 H Calcium 8.5 L Phosphorus 1.2 L Magnesium 1.3 L Total Bilirubin 1.7 H Direct Bilirubin 0.8 H GGT 78 H AST 63 H ALT Lactate Dehydrogenase Total Protein 5.3 L Albumin 3.1 L Globulin Urine Protein Urine Occult Blood Urine RBC Urine WBC Urine Mucus 03/13/18 03/13/18 03/13/18 06:14 05:40 05:40 WBC RBC Hgb Hct Plt Count MPV Gran % Lymph % (Auto) [place] % (Auto) Gran # Lymph # (Auto) [place] # (Auto) Seg Neutrophils % 81 H Lymphocytes % 9 L VBG Lactic Acid 3.2 H Carbon Dioxide Creatinine Calcium Phosphorus Magnesium Total Bilirubin Direct Bilirubin GGT AST ALT Lactate Dehydrogenase Total Protein Albumin Globulin Urine Protein 100 A Urine Occult Blood >=1.0 A Urine RBC > 182 H Urine WBC > 182 H Urine Mucus Many A 03/13/18 05:40 WBC RBC Hgb Hct Plt Count MPV Gran % 95.6 H Lymph % (Auto) 3.9 L [place] % (Auto) 0.4 L Gran # Lymph # (Auto) 0.3 L [place] # (Auto) 0 L Seg Neutrophils % Lymphocytes % VBG Lactic Acid Carbon Dioxide Creatinine Calcium Phosphorus Magnesium Total Bilirubin Direct Bilirubin GGT AST ALT Lactate Dehydrogenase Total Protein Albumin Globulin Urine Protein Urine Occult Blood Urine RBC Urine WBC Urine Mucus Meds: Medications Acetaminophen (Tylenol) 650 mg PO Q6HP PRN PRN Reason: PAIN/FEVER > 101 Hydrocodone Bitart/Acetaminophen ([place] 5/325mg) 1 tab PO Q4HP PRN PRN Reason: PAIN LEVEL 3-6 Albuterol/Ipratropium (Duoneb) 3 ml NEB Q2HP PRN PRN Reason: Shortness Of Breath Calcium Carbonate/Glycine (Tums) 500 mg CHEWED Q4HP PRN PRN Reason: Dyspepsia Sodium Chloride (Sodium Chloride 0.9%) 1,000 mls @ 125 mls/hr IV .Q8H [facility] Acetaminophen (Ofirmev) 1,000 mg in 100 mls @ 200 mls/hr IV Q6HP PRN PRN Reason: Fever Piperacillin Sod/Tazobactam (Sod 3.375 gm/ Dextrose) 50 mls @ 100 mls/hr IV Q6H [facility] Ondansetron HCl (Zofran) 4 mg IV Q4HP PRN PRN Reason: Nausea And Vomiting Pantoprazole Sodium (Protonix) 40 mg IV QAMAC [facility] Sodium Chloride (Saline Flush) 10 ml IV Q8 [facility] Medical - PN: A/P - Time Spent With Patient Total time spent is greater than 50% in coordination of care (as documented) at patient's floor/unit and/or counseling patient: Greater than 35 minutes (1) Septic shock Status: Acute Current Visit: Yes - Narrative A/P Narrative: 72-year-old male status post prostate biopsy on 03/12 presenting on 03/13 with fever and delirium, subsequently developing septic shock. Severe sepsis with septic shock. Lactate 4.9, though not requiring pressors. Suspected source is secondary to prostate biopsy. Improved today after further fluids. Blood cultures are positive for gram-negative rods. Plan: Continue with IV fluids, continue with Zosyn, narrow antibiotic spectrum when sensitivities are known. Check abdominal ultrasound given liver enzyme abnormalities. [place]. Likely secondary to prostate biopsy in expected. Plan: Follow. Leukopenia and mild thrombocytopenia yesterday evening. Resolved today. Likely secondary to sepsis response. Plan: Follow. Elevated total bilirubin and transaminases. Suspect secondary to sepsis, though will evaluate as a separate source of infection. Plan: Check abdominal ultrasound. PTSD. Stable. Possible COPD given her history of smoking and chest x-ray findings. Stable. Mild dyspnea, likely related to volume resuscitation. Plan: Incentive spirometry. Supplemental oxygen as needed. Acute hypoxic respiratory failure. Secondary to sepsis and volume resuscitation. Stable on 2 L nasal cannula. Plan: Continue, wean as able. Prophylaxis: SCDs, begin Lovenox. Medical - PN: Qual - VTE Deep Vein Thrombosis/Pulmonary Embolism Present on Admission: No
[2018-03-14] MEDS ORDERED: ENOXAPARIN 40 MG/0.4 ML SYRINGE SQ ONE (12:36)
--- NOTE | 2018-03-14 15:39 | Ultrasound Report ---
CLINICAL INFORMATION: Sepsis, abnormal LFT's COMPARISON: None. FINDINGS: Mild hyperechoic liver is most patible with fatty change. No focal hepatic lesion. There is a 5 mm polyp within the gallbladder. Gallbladder wall is normal thickness - 2 mm without focal tenderness. Common bile duct is normal - 3 mm. The pancreas is normal. IMPRESSION: 1. Mildly hyperechoic liver most compatible fatty change. 2. 5 mm gallbladder polyp Interpreted and Authenticated by: Nikita Marrufo 03/14/18
[2018-03-14] MEDS: ACETAMINOPHEN 325 MG TABLET PO PRN ×2 (15:51→23:48)
[2018-03-15] MEDS: PIPERACILLIN SODIUM/TAZOBACTAM 3.375 GM in DEXTROSE 5% IN WATER 50 ML IV SCH (05:28)
[2018-03-15] MEDS: 0.9 % SODIUM CHLORIDE 10 ML SYRINGE IV SCH ×5 (05:28→21:42)
[2018-03-15 06:04] LABS: Basophils # (Auto) 0 K/mcL (0.0-0.3); Basophils % (Auto) 0.1 % (0.0-2.0); Eosinophils # (Auto) 0 K/mcL (0.0-0.7); Eosinophils % (Auto) 0 % (0.0-7.0); Lymphocytes # (Auto) 0.8 K/mcL (1.5-4.8); Lymphocytes % (Auto) 5.9 % (15.5-49.0); Mean Cell Volume 93.9 fL (80.0-100.0); Mean Corpuscular HGB Conc 33.8 g/dL (31.0-36.0); Mean Corpuscular Hemoglobin 31.7 pg (26.0-34.0); Monocytes # (Auto) 0.4 K/mcL (0.1-0.9); Platelet Count 121 K/mcL (140-440); RBC 3.77 M/mcL (4.50-5.90); Red Cell Distribution Width 13.3 % (11.5-14.5)
[2018-03-15] MEDS: 0.9 % SODIUM CHLORIDE 1,000 ML IV SCH ×2 (07:21→09:04)
[2018-03-15 07:24] LABS: ALT/SGPT 70 U/l (0-40); Bilirubin,Direct 0.4 mg/dL (0.0-0.3); Blood Urea Nitrogen 18 mg/dl (8-23); Gamma Glutamyl Transpeptidase 109 U/L (8-61); Uric Acid 3.6 mg/dL (2.5-8.0)
[2018-03-15 07:25] LABS: Albumin 2.9 gm/dL (3.2-5.2); Albumin/Globulin Ratio 1.3 (1.0-2.3); Alkaline Phosphatase 115 U/L (39-117)
[2018-03-15] MEDS ORDERED: PANTOPRAZOLE 40 MG VIAL IV SCH (07:30)
[2018-03-15] MEDS ORDERED: ENOXAPARIN 40 MG/0.4 ML SYRINGE SQ SCH (09:00)
[2018-03-15] MEDS ORDERED: CIPROFLOXACIN 400 MG/200 ML BAG IV SCH (10:00)
[2018-03-15] MEDS ORDERED: CALCIUM CARBONATE 500 MG TAB.CHEW CHEWED PRN (11:00)
[2018-03-15] MEDS ORDERED: ONDANSETRON 4 MG/2 ML VIAL IV PRN (11:00)
[2018-03-15] MEDS ORDERED: IPRATROPIUM/ALBUTEROL 3 ML AMPUL.NEB NEB PRN (11:00)
[2018-03-15] MEDS ORDERED: ACETAMINOPHEN 325 MG TABLET PO PRN (11:00)
[2018-03-15] MEDS ORDERED: HYDROcodone/APAP 5/325MG TABLET PO PRN (11:00)
--- NOTE | 2018-03-15 16:12 | Internal Med Progress Note ---
Medical - PN: Subj Patient information: Note initiated : 03/15/18 at 4:09 pm Service Date, if different from initiated Date: [] Patient: Gisela Finn 72 y/o M admitted on 03/13/18 for Fever. Chief Complaint: f/u sepsis Interval history: 03/13 Presented with fever, elevated lactate, consistent with sepsis from prostate biopsy the day before. Compensated with fever, delirium, tachycardia, hypotension and worsening lactic acidosis consistent with septic shock. Resuscitated with fluid boluses, did not require pressors. 03/14 Feeling better this morning. Blood pressure still soft, though maintaining MAP greater than 65. No abdominal pain. No further rigors. No nausea or vomiting. Mild dyspnea, improved with incentive spirometry. 03/15 Feeling much better this morning. Up out of bed in chair. Some mild dyspnea with exertion. No fevers or chills. A little generally weak. Appetite is poor but improving. Blood cultures are returned Escherichia coli, generally sensitive except to ampicillin. - Constitutional Vitals: Vital Signs Temp Pulse Resp BP Pulse Ox 99.4 F H 76 18 123/81 96 03/15/18 15:37 03/15/18 15:37 03/15/18 15:37 03/15/18 15:37 03/15/18 15:37 Period Temp Pulse Resp BP Sys/[place]jas Pulse Ox Last 24 Hr 98.1 F-99.4 F 69-95 8-25 90-133/55-81 93-100 Intake and Output 03/15/18 03/15/18 03/15/18 05:59 13:59 21:59 Intake Total 600 / 600 2324 / 2324 300 / 300 Output Total 600 / 600 825 / 825 Balance 0 / 0 1499 / 1499 300 / 300 Intake & Output: Intake & Output 03/15/18 03/15/18 03/15/18 05:59 13:59 21:59 Intake Total 600 / 600 2324 / 2324 300 / 300 Output Total 600 / 600 825 / 825 Balance 0 / 0 1499 / 1499 300 / 300 Intake: IV 100 / 100 1844 / 1844 Sodium Chloride 0.9% 1,000 ml @ 1000 / 1000 125 mls/hr IV .Q8H [facility] Rx#: [id number] Zosyn 3.375 gm In Dextrose 5% 100 / 100 in Water 50 ml @ 100 mls/hr IV Q6H [facility] Rx#:[id number] Oral 500 / 500 480 / 480 300 / 300 Output: Urine Catheter Amount 600 / 600 675 / 675 Void Amount 150 / 150 Other: Meal Breakfast Lunch Percent of Meal Consumed 75% 50% Feeding Ability Independent Independent Urine Appearance Clear Clear Uretheral (Baez) Clear Urine Color Dark Yellow Bright Yellow Uretheral (Baez) Light [place] Light [place] Urine Odor Normal Stool Size Small Small Stool Color Green Brown Stool Consistency Soft Loose Formed Loose # Bowel Movements 1 1 Exam: General: Up in chair, no acute distress on chest: Diminished bases, otherwise clear Cardiac vascular: Regular, no murmur Abdomen: Soft, nontender Extremities: Trace edema Neuro: Alert, oriented 3, moves all extremities equally Medical - PN: Obj Da - Labs CBC & Chem 7: 03/15/18 04:07 03/15/18 04:07 Labs: Abnormal Lab Results 03/15/18 03/15/18 03/14/18 04:07 04:07 04:05 WBC 13.9 H RBC 3.77 L Hgb 11.9 L Hct 35.4 L Plt Count 121 L MPV 11.4 H Gran % 91.0 H Lymph % (Auto) 5.9 L [place] % (Auto) Gran # 12.6 H Lymph # (Auto) 0.8 L [place] # (Auto) Seg Neutrophils % Lymphocytes % VBG Lactic Acid 2.4 H Chloride 109 H Carbon Dioxide 19 L Creatinine Glucose 69 L Calcium 7.9 L Phosphorus 1.8 L Magnesium Total Bilirubin 1.1 H Direct Bilirubin 0.4 H GGT 109 H AST 99 H ALT 70 H Lactate Dehydrogenase 313 H Total Protein 5.1 L Albumin 2.9 L Globulin Triglycerides 287 H Urine Protein Urine Occult Blood Urine RBC Urine WBC Urine Mucus 03/14/18 03/14/18 03/13/18 04:05 04:05 16:12 WBC 13.8 H RBC 3.95 L Hgb 12.7 L Hct 36.9 L Plt Count MPV 10.7 H Gran % 95.4 H Lymph % (Auto) 1.9 L [place] % (Auto) Gran # 13.1 H Lymph # (Auto) 0.3 L [place] # (Auto) Seg Neutrophils % Lymphocytes % VBG Lactic Acid 4.9 H* Chloride Carbon Dioxide 20 L Creatinine 1.3 H Glucose Calcium 8.2 L Phosphorus Magnesium Total Bilirubin 2.6 H Direct Bilirubin 1.7 H GGT 130 H AST 150 H ALT 92 H Lactate Dehydrogenase 329 H Total Protein 4.9 L Albumin 2.9 L Globulin 2.0 L Triglycerides Urine Protein Urine Occult Blood Urine RBC Urine WBC Urine Mucus 03/13/18 03/13/18 03/13/18 16:12 16:12 06:14 WBC 1.4 L RBC 4.04 L Hgb 12.9 L Hct 37.3 L Plt Count 131 L MPV Gran % 92.5 H Lymph % (Auto) 6.9 L [place] % (Auto) 0.5 L Gran # 1.3 L Lymph # (Auto) 0.1 L [place] # (Auto) 0 L Seg Neutrophils % Lymphocytes % VBG Lactic Acid Chloride Carbon Dioxide 20 L Creatinine 1.4 H Glucose Calcium 8.5 L Phosphorus 1.2 L Magnesium 1.3 L Total Bilirubin 1.7 H Direct Bilirubin 0.8 H GGT 78 H AST 63 H ALT Lactate Dehydrogenase Total Protein 5.3 L Albumin 3.1 L Globulin Triglycerides Urine Protein 100 A Urine Occult Blood >=1.0 A Urine RBC > 182 H Urine WBC > 182 H Urine Mucus Many A 03/13/18 03/13/18 03/13/18 05:40 05:40 05:40 WBC RBC Hgb Hct Plt Count MPV Gran % 95.6 H Lymph % (Auto) 3.9 L [place] % (Auto) 0.4 L Gran # Lymph # (Auto) 0.3 L [place] # (Auto) 0 L Seg Neutrophils % 81 H Lymphocytes % 9 L VBG Lactic Acid 3.2 H Chloride Carbon Dioxide Creatinine Glucose Calcium Phosphorus Magnesium Total Bilirubin Direct Bilirubin GGT AST ALT Lactate Dehydrogenase Total Protein Albumin Globulin Triglycerides Urine Protein Urine Occult Blood Urine RBC Urine WBC Urine Mucus Microbiology 03/13/18 06:14 Urine Culture - Final Urine - Clean Void Mid-Stream 03/13/18 05:40 Blood Culture - Final Blood Escherichia coli Meds: Medications Acetaminophen (Tylenol) 650 mg PO Q6HP PRN PRN Reason: PAIN/FEVER > 101 Hydrocodone Bitart/Acetaminophen ([place] 5/325mg) 1 tab PO Q4HP PRN PRN Reason: PAIN LEVEL 3-6 Albuterol/Ipratropium (Duoneb) 3 ml NEB Q2HP PRN PRN Reason: Shortness Of Breath Calcium Carbonate/Glycine (Tums) 500 mg CHEWED Q4HP PRN PRN Reason: Dyspepsia Enoxaparin Sodium (Lovenox) 40 mg SQ DAILY [facility] Ciprofloxacin (Cipro) 400 mg in 200 mls @ 200 mls/hr IV Q12H [facility] Ondansetron HCl (Zofran) 4 mg IV Q4HP PRN PRN Reason: Nausea And Vomiting Pantoprazole Sodium (Protonix) 40 mg IV QAMAC [facility] Sodium Chloride (Saline Flush) 10 ml IV Q8 [facility] Last Admin: 03/15/18 13:00 Dose: 10 ml Medical - PN: A/P - Time Spent With Patient Total time spent is greater than 50% in coordination of care (as documented) at patient's floor/unit and/or counseling patient: Greater than 35 minutes (1) Septic shock Status: Acute Current Visit: Yes - Narrative A/P Narrative: 72-year-old male status post prostate biopsy on 03/12 presenting on 03/13 with fever and delirium, subsequently developing septic shock. Severe sepsis with septic shock. Lactate peaked at 4.9, now normalized. Escherichia coli in blood cultures, suspected source is secondary to prostate biopsy. Abdominal ultrasound without evidence of biliary disease. Plan: Saline lock, stop Zosyn, begin ciprofloxacin twice a day, start to mobilize. [place]. Likely secondary to prostate biopsy in expected. Plan: Follow; d/c Baez Leukopenia and mild thrombocytopenia 03/13 evening. Resolved. Likely secondary to sepsis response. Plan: Follow. Elevated total bilirubin and transaminases. Suspect secondary to sepsis, now improving. No evidence of biliary disease on ultrasound. Plan: Monitor. PTSD. Stable. Possible COPD given her history of smoking and chest x-ray findings. Stable. Mild dyspnea, likely related to volume resuscitation. Plan: Incentive spirometry. Acute hypoxic respiratory failure. Secondary to sepsis and volume resuscitation. Resolved, on room air. Plan: Monitor Prophylaxis: SCDs, Lovenox. Medical - PN: Qual - VTE Deep Vein Thrombosis/Pulmonary Embolism Present on Admission: No
[2018-03-15] MEDS ORDERED: POTASSIUM PHOSPHATE 20 MEQ in DEXTROSE 5% IN WATER 250 ML IV ONE (17:13)
[2018-03-15] MEDS ORDERED: NEUTRA PHOS 1 PACKET PO ONE (17:24)
[2018-03-15] MEDS: NEUTRA PHOS 1 PACKET PO SCH (21:42)
[2018-03-15] MEDS: CIPROFLOXACIN 400 MG/200 ML BAG IV SCH (21:42)
[2018-03-16] MEDS: 0.9 % SODIUM CHLORIDE 10 ML SYRINGE IV SCH (05:13)
[2018-03-16] MEDS ORDERED: PANTOPRAZOLE 40 MG VIAL IV SCH (07:30)
[2018-03-16 07:55] LABS: Basophils # (Auto) 0 K/mcL (0.0-0.3); Basophils % (Auto) 0 % (0.0-2.0); Eosinophils # (Auto) 0.1 K/mcL (0.0-0.7); Eosinophils % (Auto) 0.5 % (0.0-7.0); Granulocytes % (Auto) 86.4 % (38.0-78.0); Lymphocytes % (Auto) 8.7 % (15.5-49.0); Mean Cell Volume 93.3 fL (80.0-100.0); Mean Corpuscular HGB Conc 33.9 g/dL (31.0-36.0); Mean Corpuscular Hemoglobin 31.7 pg (26.0-34.0); Monocytes # (Auto) 0.5 K/mcL (0.1-0.9); Monocytes % (Auto) 4.4 % (1.0-12.0); Platelet Count 129 K/mcL (140-440); RBC 3.74 M/mcL (4.50-5.90); Red Cell Distribution Width 13.2 % (11.5-14.5)
[2018-03-16 08:28] LABS: ALT/SGPT 56 U/l (0-40); Albumin 2.6 gm/dL (3.2-5.2); Alkaline Phosphatase 221 U/L (39-117); Bilirubin,Direct < 0.2 mg/dL (0.0-0.3); Blood Urea Nitrogen 14 mg/dl (8-23); Gamma Glutamyl Transpeptidase 115 U/L (8-61); Uric Acid 3.8 mg/dL (2.5-8.0)
[2018-03-16] MEDS ORDERED: ENOXAPARIN 40 MG/0.4 ML SYRINGE SQ SCH (09:00)
[2018-03-16] MEDS: NEUTRA PHOS 1 PACKET PO SCH (09:37)
[2018-03-16] MEDS: CIPROFLOXACIN 400 MG/200 ML BAG IV SCH (09:37)
--- NOTE | 2018-03-16 11:10 | Discharge Summary ---
Medical - DS: Prov Patient information: Note initiated : 03/16/18 at 11:06 am Service Date, if different from initiated Date: [] Patient: Gisela Finn 72 y/o M admitted on 03/13/18 for Fever. Date of admission: 03/13/18 11:33 Discharge date: 03/16/18 Primary care physician: Cinthia Anglin Admitting clinician: Stanislaw Redmond Consults: 03/13/18 Consult to Physician [CONS] Stat Comment: Consulting Provider: Stanislaw Redmond Reason For Exam: Physician to Consult Discharging clinician: Martha Garcia Medical - DS: Meds - Discharge Medications Prescriptions: Ciprofloxacin [Cipro] 500 mg PO BID #21 tab Neutra Phos 1 packet PO BID #14 packet Active and Home Medications: Home Medications sildenafil 100 mg tablet See Dose Instructions PO ONCE PRN 03/09/15 [History Confirmed 03/13/18 Last Taken 06/03/17] aspirin 325 mg tablet 325 mg PO QDAY 03/30/15 [History Confirmed 03/13/18 Last Taken 06/03/17] Medical - DS: Hosp Hospital course: 03/13 Mr. Finn is a 72 year old M 2ho had a prostate biopsy up at the [facility] yesterday. Early this morning around 2:58 AM patient started developing severe shakiness, did not particular feel like he had a fever. Per he also seemed confused she called 911 brought him to the ED. In the ED he was worked up and found to have sepsis syndrome, likely secondary to recent biopsy. Patient was febrile 102 he was tachycardic in the low 100s. His blood pressure dropped into the low 90s. Pro-calcitonin elevated, lactate elevated at 3.2. Discussing with the patient he does feel much better after the IV fluid mentation is improved per his . Still tachycardic, blood pressure is improved but still low 100s. Does have some hematuria status post procedure which is expected. Later in the day, decompensated with fever, delirium, tachycardia, hypotension and worsening lactic acidosis consistent with septic shock. Resuscitated with fluid boluses, did not require pressors. 03/14 Feeling better this morning. Blood pressure still soft, though maintaining MAP greater than 65. No abdominal pain. No further rigors. No nausea or vomiting. Mild dyspnea, improved with incentive spirometry. 03/15 Feeling much better this morning. Up out of bed in chair. Some mild dyspnea with exertion. No fevers or chills. A little generally weak. Appetite is poor but improving. Blood cultures are returned Escherichia coli, generally sensitive except to ampicillin. 03/16 Feeling improved further today. Tolerating ciprofloxacin. Plan to discharge to home, complete 14 day course of antibiotics (cannot rule out prostate infection from biopsy in addition to bloodstream infection). Final diagnosis is severe sepsis with septic shock (lactate 4.9, not requiring pressors) due to Escherichia coli bloodstream infection likely as a consequence of prostate biopsy about 12 hours prior to onset of symptoms. Discharge diagnosis: Severe sepsis w/ septic shock due to E. coli bloodstream infection Secondary discharge diagnosis: Leukopenia and mild thrombocytopenia due to sepsis, resolved/resolving Acute hypoxic respiratory failure, secondary to sepsis and volume resuscitation. Resolved. Elevated total bilirubin and transaminases due to sepsis, resolving, no evidence of biliary disease on ultrasound. Hematuria, likely secondary to prostate biopsy PTSD. Stable. - Time Spent with Patient Total time spent providing and/or coordinating discharge services: Greater than 30 minutes Medical - DS: Exam - Constitutional Vitals: Vital Signs Temp Pulse Pulse Resp BP BP Pulse Ox 03/16/18 08:00 98.6 F 20 124/78 124/78 94 03/16/18 04:00 99.6 F H 16 103/55 92 03/16/18 00:00 98.7 F 16 124/76 94 03/15/18 19:46 99.2 F H 20 122/75 93 03/15/18 18:30 84 16 122/75 94 03/15/18 15:37 99.4 F H 76 18 123/81 96 03/15/18 12:06 17 03/15/18 12:05 98.6 F 69 18 124/79 100 03/15/18 12:00 13 Intake and Output 03/15/18 03/16/18 03/16/18 21:59 05:59 13:59 Intake Total 1240 / 1240 400 / 400 Output Total 1375 / 1375 Balance 1240 / 1240 -975 / -975 Intake: IV 200 / 200 Oral 1240 / 1240 200 / 200 Output: Void Amount 1375 / 1375 Other: Meal Dinner Percent of Meal Consumed 50% Feeding Ability Assist with Tray Set Up # Voids 1 Weight 214 lb Additional comments: General: In no acute distress Chest: Clear, unlabored Cardiovascular: Regular, no edema Abdomen: Soft, nontender Neuro: Alert, oriented 3, moves all extremities equally, nonfocal Medical - DS: Data Labs on day of discharge: Labs from last 24 hours 03/16/18 03/16/18 03:45 03:45 WBC 11.8 H RBC 3.74 L Hgb 11.8 L Hct 34.9 L MCV 93.3 MCH 31.7 MCHC 33.9 RDW 13.2 Plt Count 129 L MPV 10.9 H Gran % 86.4 H Lymph % (Auto) 8.7 L [place] % (Auto) 4.4 Eos % (Auto) 0.5 Baso % (Auto) 0 Gran # 10.2 H Lymph # (Auto) 1.0 L [place] # (Auto) 0.5 Eos # (Auto) 0.1 Baso # (Auto) 0 Differential Comment Sodium 141 Potassium 4.2 Chloride 107 Carbon Dioxide 21 L Anion Gap 13.0 BUN 14 Creatinine 0.9 GFR Calculation 86 Glucose 73 Uric Acid 3.8 Calcium 7.8 L Phosphorus 1.8 L Magnesium 2.2 Total Bilirubin 0.6 Direct Bilirubin < 0.2 GGT 115 H AST 67 H ALT 56 H Alkaline Phosphatase 221 H Lactate Dehydrogenase 394 H Total Protein 5.3 L Albumin 2.6 L Globulin 2.7 Albumin/Globulin Ratio 1.0 Triglycerides 299 H Microbiology 03/13/18 06:14 Urine - Clean Void Mid-Stream Urine Culture - Final 03/13/18 05:40 Blood Blood Culture - Final Escherichia coli 03/13/18 05:45 Blood Blood Culture - Preliminary Gram negative bacillus 03/13/18 17:43 Nose - Both Right and Left MRSA (PCR) - Final - Imaging and Cardiology Chest x-ray Additional comments: IMPRESSION: Findings suggestive of chronic bronchitis or asthma. US - abdomen Additional comments: IMPRESSION: 1. Mildly hyperechoic liver most compatible fatty change. 2. 5 mm gallbladder polyp Medical - DS: A/P - Patient/Caregiver Discharge Instructions Activity: increase activity as tolerated Diet: Regular Diet Additional Instructions: Space out ciprofloxacin doses from when you take the Neutra-phos supplement by 2 hours (or as directed by the pharmacy). - Problem Maintenance (1) Septic shock Status: Resolved - Follow up Plan Follow up with: Sony Valadez ARNP [Adv Reg Nurse Practitioner] - (7-10 days) Disposition: Home, Self-Care Prognosis: Good Rehab Potential: Good Overall status at discharge: patient is progressing back to baseline Medical - DS: Qual - VTE Deep Vein Thrombosis/Pulmonary Embolism Present on Admission: No
== END 2018-03-16 12:42 | disposition home or self-care (01) | DRG 862 ==
LOC: ED 05:23 → ICU 11:33
PROVIDERS: ADMIT Internal Medicine; ATTEND Internal Medicine
CPT/HCPCS: 84145; 87149; J0131; J0696; J0744; J1650; J2543; J7030; J7050; J7060; J7120; J7620; J7620-GY